=== PATIENT | female | born 1955 | race Caucasian/White ===

== ENCOUNTER 2022-01-11 10:03 | Emergency (ER) | payer BC ==
[2022-01-11 10:42] LABS: Bilirubin Negative (Negative); Blood, Urine Large (Negative); Clarity Slightly Cloudy (Clear); Glucose, Urine (Dipstick) Negative (Negative); Ketone, Urine Negative (Negative); Leukocyte Large (Negative); Nitrite Negative (Negative); Protein, Urine (Dipstick) Negative (Neg-Trace); Urobilinogen 0.2 mg/dL (Less than 2); pH, Urine 7.5 (5.0-9.0)
[2022-01-11 10:52] LABS: Bacteria/HPF 1+ HPF (None Seen); RBC/HPF 21-50 HPF (0-3)
[2022-01-11] MEDS ORDERED: Sulfameth/Trimethoprim DS 800-160mg TAB ONE (11:03)
[2022-01-11] MEDS ORDERED: Phenazopyridine HCl 95 MG TAB ONE (11:03)
== END 2022-01-11 11:06 | disposition home or self-care (01) ==
LOC: BURERS 10:03
DX: N30.91 Cystitis, unspecified with hematuria (principal); I10 Essential (primary) hypertension; E78.00 Pure hypercholesterolemia, unspecified
CPT/HCPCS: 81003; 81015; 87086; 99283